=== PATIENT | male | born 1980 | race Caucasian/White ===

== ENCOUNTER 2019-12-09 21:29 | Emergency (ER) | payer SELFPAY ==
[~2019-12-09] VITALS: Ht 170.2 cm; Wt 67.1 kg
[2019-12-09 21:38] VITALS: BP 147/86; Ht 170.2 cm; Wt 67.1 kg
== END 2019-12-09 22:12 | disposition home or self-care (01) ==
LOC: ED 21:29
DX: R07.89 Other chest pain (principal)